=== PATIENT | female | born 1965 | race African-American/Black ===

== ENCOUNTER 2024-08-06 10:55 | Inpatient (IN) | payer MEDICAID ==
[~2024-08-06] VITALS: Ht 162.6 cm; Wt 73.0 kg
[2024-08-06] MEDS ORDERED: CefTRIAXone 1 GM/DEXTROSE 50 ML IV ONE (11:45)
[2024-08-06] MEDS ORDERED: 0.9% SODIUM CHLORIDE 10 ML SYRINGE IVP PRN (11:45)
[2024-08-06] MEDS ORDERED: SODIUM CHLORIDE 0.9% 250 ML IV ONE (11:45)
[2024-08-06] MEDS ORDERED: ALBUTEROL SULFATE 2.5 MG/0.5 ML NEB SOLUTION NEB ONE (11:45)
[2024-08-06] MEDS ORDERED: IPRATROPIUM BROMIDE 0.5 MG/2.5 ML NEB SOLUTION NEB ONE (11:45)
[2024-08-06 13:52] LABS: EOSINOPHILS % (AUTO) 7.4 % (1.0-6.0); HEMATOCRIT 39.6 % (36-46); HEMOGLOBIN 12.9 g/dL (12.0-16.0); LYMPHOCYTES # (AUTO) 2.6 K/uL (1.0-4.8); MEAN CORPUSCULAR HEMOGLOBIN 28.2 pg (26.0-34.0); MEAN CORPUSCULAR HGB CONC 32.6 G/dL (31.0-37.0); MEAN CORPUSCULAR VOLUME 87 fL (80-100); MONOCYTES # (AUTO) 0.4 K/uL (0.1-1.0); MONOCYTES % (AUTO) 4.9 % (2.0-9.0); NEUTROPHILS % (AUTO) 52.7 % (40.0-70.0); PLATELET COUNT (AUTO) 369 K/uL (150-450); RED BLOOD CELL COUNT(AUTO) 4.57 MIL/uL (4.00-5.20); RED CELL DISTRIBUTION WIDTH 14.7 % (11.5-14.5); WHITE BLOOD COUNT (AUTO) 7.5 K/uL (4.5-11.0)
[2024-08-06 14:00] LABS: ANION GAP 7 mmol/L (8-16); CALCIUM, TOTAL 9.5 mg/dL (8.8-10.5); CARBON DIOXIDE 32 mmol/L (22-29); CHLORIDE 103 mmol/L (98-107); CREATININE 0.76 mg/dL (0.60-1.30); GLOMERULAR FILTR. RATE CALC > 60 mL/min (>60); GLUCOSE,RANDOM 81 mg/dL (70-110); POTASSIUM 3.7 mmol/L (3.5-5.1); SODIUM SERUM 142 mmol/L (136-145); UREA NITROGEN, BLOOD 10 mg/dL (7-18)
[2024-08-06 14:32] LABS: ALCOHOL, BLOOD (SERUM) < 3 mg/dL (0-10)
[2024-08-06] MEDS ORDERED: HALOPERIDOL 5 MG TABLET PO PRN (15:45)
[2024-08-06] MEDS ORDERED: LORazepam 2 MG TABLET PO PRN (15:45)
[2024-08-06] MEDS ORDERED: ZOLPIDEM TARTRATE 10 MG TABLET PO PRN (15:45)
[2024-08-06 18:42] LABS: COVID AG,FIA SOURCE NASAL SWAB
[2024-08-06 18:59] LABS: AMPHET/METH SCREEN,URINE NEGATIVE (NEGATIVE); BARBITURATE SCREEN, URINE NEGATIVE (NEGATIVE); BENZODIAZEPINES SCREEN,URINE NEGATIVE (NEGATIVE); CANNABINOID SCREEN,URINE POSITIVE (NEGATIVE); COCAINE SCREEN,URINE NEGATIVE (NEGATIVE); METHADONE SCREEN, URINE NEGATIVE (NEGATIVE); OPIATE SCREEN,URINE NEGATIVE (NEGATIVE); PHENCYCLIDINE SCREEN,URINE NEGATIVE (NEGATIVE)
[2024-08-06 19:00] LABS: ALCOHOL, URINE DRUG SCREEN NEGATIVE (NEGATIVE)
[2024-08-06 19:05] LABS: PH,URINE DRUG SCREEN 6.5 (5.0-8.0)
[2024-08-06 19:14] LABS: SARS-COV2 (COVID) ANTIGEN,FIA Negative (Negative)
[2024-08-06 23:00] VITALS: BP 134/76; PULSE 87; RESP 16; TEMP 96.9; O2SAT 96
[2024-08-06] MEDS: INFLUENZA VIRUS VACCINE TVS (6MO+) 2024-25/PF 45 MCG/0.5 ML SYRINGE IM. ONE (23:30)
[2024-08-07] MEDS ORDERED: IBUPROFEN 600 MG TABLET PO PRN (06:45)
[2024-08-07] MEDS ORDERED: DOCUSATE SODIUM 100 MG CAPSULE PO PRN (06:45)
[2024-08-07] MEDS ORDERED: CloNIDine HCL 0.1 MG TABLET PO PRN (06:45)
[2024-08-07] MEDS ORDERED: BENZOCAINE/MENTHOL LOZENGE PO PRN (06:45)
[2024-08-07] MEDS ORDERED: ALBUTEROL SULFATE HFA 90 MCG/PUFF 8 GM INHALER IH PRN (06:45)
[2024-08-07] MEDS ORDERED: OMEPRAZOLE 20 MG CAPSULE PO PRN (06:45)
[2024-08-07] MEDS ORDERED: PETROLATUM,WHITE 28 GM JELLY TP PRN (06:45)
[2024-08-07] MEDS ORDERED: BACITRACIN 28 GM OINTMENT TP PRN (06:45)
[2024-08-07] MEDS ORDERED: LOPERAMIDE HCL 2 MG CAPSULE PO PRN (06:45)
[2024-08-07] MEDS ORDERED: MAG HYDROX/ALUMINUM HYD/SIMETH ES 30 ML SUSPENSION UDCUP PO PRN (06:45)
[2024-08-07] MEDS ORDERED: ACETAMINOPHEN 325 MG TABLET PO PRN (06:45)
[2024-08-07] MEDS ORDERED: ONDANSETRON 4 MG TABLET PO PRN (06:45)
[2024-08-07 08:15] VITALS: BP 117/67; PULSE 86; RESP 17; TEMP 97.1; O2SAT 98
[2024-08-07] MEDS: CITALOPRAM HYDROBROMIDE 20 MG TABLET PO SCH (16:05)
[2024-08-07 20:00] VITALS: BP 124/77; PULSE 90; RESP 16; TEMP 97.8; O2SAT 96
[2024-08-08 08:00] VITALS: BP 127/79; PULSE 84; RESP 17; TEMP 96.8
[2024-08-08] MEDS ORDERED: ChlorproMAZINE HCL 50 MG/2 ML AMP ONE (18:23)
[2024-08-08] MEDS ORDERED: LORazepam 2 MG/ML VIAL ONE (18:23)
[2024-08-08] MEDS ORDERED: DiphenhydrAMINE HCL 50 MG/ML VIAL ONE (18:23)
[2024-08-08 20:03] VITALS: BP 133/74; PULSE 82; RESP 16; TEMP 97; O2SAT 100
[2024-08-09 08:00] VITALS: BP 133/91; PULSE 79; RESP 17; TEMP 98.2; O2SAT 97
[2024-08-09] MEDS: MAGNESIUM HYDROXIDE SUSPENSION 30 ML UDCUP PO PRN (10:49)
[2024-08-09] MEDS ORDERED: CITA-144 PO (16:14)
== END 2024-08-09 18:28 | disposition home or self-care (01) | DRG 751 ==
LOC: EMS 10:55 → B2S 20:25
PROVIDERS: ADMIT Psychiatry & Neurology Psychiatry; ATTEND Psychiatry & Neurology Psychiatry
DX: F33.2 Major depressive disorder, recurrent severe without psychotic features (principal); R45.851 Suicidal ideations; F12.10 Cannabis abuse, uncomplicated; F41.9 Anxiety disorder, unspecified; G47.00 Insomnia, unspecified; K59.00 Constipation, unspecified; M54.50 Low back pain, unspecified; M54.9 Dorsalgia, unspecified; Z88.0 Allergy status to penicillin; Z85.42 Personal history of malignant neoplasm of other parts of uterus; Z85.3 Personal history of malignant neoplasm of breast
CPT/HCPCS: 80048; 80307; 85025; 87081; 99285; G0480; J1200; J2060; J3230